=== PATIENT | female | born 1960 | race Caucasian/White ===

== ENCOUNTER → 2018-02-01 | Outpatient (CLI) | payer OTHER ==
[~2018-02-01] MED LIST: CYCL-343 PO; DIA10; DIA10 PO; HYDR1LIQ6 PO; LID5T TOP; NOR10/325 PO; NOR5/325; PRE1 PO; [UNRECOGNIZED DRUG - CODE] PO
--- NOTE | 2018-02-01 11:31 | RADIOLOGY IMAGING REPORT ---
[place] [facility] [place] Natividad Melgar : 1960 MR: [id number] V: [id number] EXAM DATE: ORDERING PHYSICIAN: ROSAURA HUDSON TECHNOLOGIST: Location: [facility] [place] Patient: Natividad Melgar : 1960 Visit/Account:[id number] Date of Sevice: 02/01/2018 EXAMINATION: MRI Lumbar spine without intravenous contrast HISTORY: Low back pain. COMPARISON: Lumbar spine MRI dated 07/13/2016. TECHNIQUE: Multi-planar, multi-sequence lumbar spine MRI was performed without intravenous contrast administration. FINDINGS: Alignment: Normal. Vertebral marrow signal: Negative. Distal thoracic cord: Negative. Conus: negative, terminates at L1-L2 Cauda equina: Stable perineural cysts or meningoceles in the left L5-S1, S1-S2, and S2-S3 neural fora kita. Paravertebral soft tissues: Stable small fluid collections in the L4-L5 laminectomy bed measuring 1.9 x 1.4 x 0.8 cm on the left and 1.7 x 1.0 x 0.8 cm on the right. Visualized abdominal and pelvic structures: Negative. Disc Spaces: Lower thoracic spine: Right worse than left facet hypertrophy at T11-T12 with mild right-sided spinal canal and neural foraminal stenosis. No significant change. L1-2: Mild circumferential disc bulge with anterior annular fissure. No significant stenosis. No sign ificant change. L2-3: Mild circumferential disc bulge and facet hypertrophy. No significant stenosis. No significant change. L3-4: Mild circumferential disc bulge facet hypertrophy. No significant stenosis. No significant hills ge. L4-5: Postop decompression and fusion. Bilateral pedicle screws and interbody cage. Stable small flui d collections in the laminectomy bed. No significant stenosis. L5-S1: Mild disc bulge with right foraminal annular fissure. Mild facet hypertrophy. Perineural cyst or meningocele in the left neural foramen. No significant stenosis. No significant change. IMPRESSION: Multilevel degenerative disc disease and facet hypertrophy with postsurgical changes at L 4-L5. No significant change compared with 07/13/2016. Report Dictated By: Cristiano Olmstead MD at 02/01/2018 11:06 AM Report E-Signed By: Cristiano Olmstead MD at 02/01/2018 11:26 AM WSN:[id number]
== END ==
LOC: MRI 01:26
PROVIDERS: ATTEND Clinical Nurse Specialist Family Health
DX: M47.896 Other spondylosis, lumbar region (principal); Z98.890 Other specified postprocedural states
CPT/HCPCS: 72148